=== PATIENT | female | born 1940 | race Caucasian/White ===

== ENCOUNTER 2016-07-20 13:00 | Inpatient (IN) | payer MEDICARE, OTHER ==
[~2016-07-20] VITALS: Ht 152.4 cm; Wt 72.2 kg
--- NOTE | ~2016-07-20 | DS ---
PATIENT'S NAME: DARLING SOTO [facility] AGE: 75 Y [address] ROOM: [place] [address] LOCATION: [facility] ADMIT DATE: 07/28/2016 Discharge Summary DISCHARGE DATE: 07/30/2016 FAMILY PHYSICIAN: Bre Villaseñor MD ATTENDING PHYSICIAN: Fredis Reyes PRIMARY DIAGNOSIS: Degenerative joint disease of the right knee. SECONDARY DIAGNOSES: 1. Hyperlipidemia. 2. Hypothyroidism. 3. Diabetes mellitus. 4. Asthma. 5. Restless legs syndrome. PROCEDURE PERFORMED: Right total knee arthroplasty with computer navigation. HISTORY: The patient is a 75-year-old female, who presents with advanced right knee degenerative joint disease and associated severely compromised activities of daily living. The patient has decided to proceed with total knee arthroplasty after having been thoroughly counseled regarding the risks, benefits, limitations and alternatives. Please refer to the outpatient clinic notes and admission history and physical for this patient. HOSPITAL COURSE: The patient underwent a right total knee arthroplasty on 07/28/2016 without complications. Spinal anesthesia plus adductor canal block plus periarticular local anesthesia was utilized. The patient received 24 hours of perioperative prophylactic antibiotics and remained hemodynamically stable, neurovascularly intact throughout the entire hospital course. The postoperative prophylactic deep venous thrombosis prophylaxis consisted of Eliquis, early mobilization and pneumatic compression devices. Daily physical therapy for gait training, transfer training range of motion and quadriceps isometric exercises were received. The patient progressed well in physical therapy. On the date of discharge, 07/30/2016, the incision at the knee was healing well and showed no signs of infection. DISPOSITION: Home. DISCHARGE ACTIVITY: The patient is to bear weight as tolerated with range of motion and quadriceps isometric exercises as instructed. The operative extremity is to be elevated at least 90% of the day. There is to be sterile 4x4 gauze dressings to the incision daily. Dr. Reyes is to be notified immediately if there is any increased pain, fevers, chills, erythema or drainage. PATIENT'S NAME: DARLING SOTO [facility] AGE: 75 Y [address] ROOM: [place] [address] LOCATION: [facility] ADMIT DATE: 07/28/2016 Discharge Summary DISCHARGE DATE: 07/30/2016 FAMILY PHYSICIAN: Bre Villaseñor MD ATTENDING PHYSICIAN: Fredis Reyes DISCHARGE MEDICATIONS: 1. Eliquis 5 mg, take one tab p.o. daily. The patient will resume taking 2 daily subsequent to 08/01/2016. 2. Nucynta 50 mg, take 1 to 2 tablets p.o. every 4 hours as needed for pain. FOLLOWUP: Followup appointment is to be with Dr. Reyes on 08/04/2016 for initial postoperative evaluation and x-rays at that time. ALEISHA MUNIZ FOR FREDIS REYES MD TLB/modl /[id number] d: 08/11/16 0323 t: 08/11/16 1512, DISCHARGE SUMMARY
--- NOTE | ~2016-07-20 | OR ---
PATIENT'S NAME: FARTUN ADAME [facility] AGE: 75 Y [address] ROOM: [place] [address] LOCATION: [facility] ADMIT DATE: 07/28/2016 OR/Procedure Report DISCHARGE DATE: FAMILY PHYSICIAN: Bre Villaseñor MD ATTENDING PHYSICIAN: FREDIS REYES SURGEON: Fredis Reyes MD CLOTH DYER: London Mosley CST/TRENT and Fredis Mcgovern. DATE OF PROCEDURE: 07/28/2016 PRE-OP DIAGNOSIS: Degenerative joint disease, right knee. POST-OP DIAGNOSIS: Degenerative joint disease, right knee. OPERATION: Right total knee arthroplasty with computer navigation. ANESTHESIA: Spinal anesthesia plus adductor canal block plus periarticular local anesthesia (ropivacaine with epinephrine and Toradol). ESTIMATED BLOOD LOSS: Less than 10 mL. DRAIN: None. SPECIMEN: None. COMPLICATIONS: None. IMPLANT SYSTEM: [employer] Triathlon. Size 3 right posterior stabilized femoral component. Size 2 [place] Modular tibial baseplate. an 11 mm posterior stabilized size 2 X3 tibial polyethylene insert. A 29 mm oval X3 patella component (triple pegged). INDICATIONS FOR SURGERY: Fartun Adame is a 75-year-old female who presents with advanced right knee degenerative joint disease and associated severely compromised activities of daily living. The patient has decided to proceed with knee replacement after having been thoroughly counseled regarding the associated risks, benefits, and limitations. We have specifically reviewed the risks and implications of infection, deep venous thrombosis, pulmonary embolism, mortality, neurovascular complications, blood transfusion (and associated potential for disease transmission or transfusion reaction), stiffness, instability, mechanical deterioration of the components (due to wear and or loosening), and the potential need for revision. We have also emphasized the importance of active involvement and compliance with post- operative physical therapy as a means of optimizing range of motion and PATIENT'S NAME: FARTUN ADAME [facility] AGE: 75 Y [address] ROOM: [place] [address] LOCATION: [facility] ADMIT DATE: 07/28/2016 OR/Procedure Report DISCHARGE DATE: FAMILY PHYSICIAN: Bre Villaseñor MD ATTENDING PHYSICIAN: FREDIS REYES functional recovery. Informed consent has been granted. DESCRIPTION OF PROCEDURE: The patient was positioned supine after administration of anesthesia and prophylactic antibiotics. A well-padded pneumatic tourniquet was placed around the right proximal thigh, and the right lower extremity was prepped and draped with vigilant sterile technique. The patient's name as well as the intended operative side and procedure were confirmed with a verbal time-out involving myself, the circulating nurse, the scrub nurse, and the anesthesiologist. Examination under anesthesia demonstrated no active skin lesions or masses. There was a moderate effusion. There was no erythema. There was no abnormal warmth. Range of motion under anesthesia was from full extension to 130 degrees of flexion. There was no clinically evident ligamentous insufficiency. The right lower extremity was elevated and exsanguinated with an Esmarch wrap, and the pneumatic tourniquet was inflated to 300 mmHg. The knee was approached through a longitudinal midline incision. A medial parapatellar arthrotomy was performed and the patella was everted. Examination of the joint space demonstrated a large amount of benign-appearing translucent synovial fluid. There were no loose bodies. There was no synovitis. There was a small osteophyte at the intercondylar notch. The anterior cruciate ligament was absent. The posterior cruciate ligament was intact. There was full-thickness loss of articular cartilage involving 80% of the medial femoral condyle and 60% of the medial tibial plateau. There were moderate-sized osteophytes at the medial femoral condyle and medial tibial plateau. There was a 1 cm diameter region of full-thickness articular cartilage loss at the central aspect of the femoral trochlea. There were mild grade 3 degenerative changes at the medial facet of the patella as well as the lateral tibial plateau. There was a very small osteophyte at the lateral femoral condyle. There were grade 2 degenerative changes at the lateral facet of the patella as well as the lateral femoral condyle. The middle one-third of the medial meniscus was essentially absent. There was mild inner perimeter tearing of the lateral meniscus. Remnants of the menisci and cruciate ligaments were excised. The [employer] navigation femoral tracker was pinned in place at the distal aspect of the femoral trochlea. Absence of motion between the femur and the tracking device was confirmed manually and visually. Femoral osseous landmarks were obtained in order to calibrate the computer navigation system. Landmarks included the center of rotation of the ipsilateral hip, the center-point of the distal femur, the femoral AP axis, 57 points on the medial femoral condyle articular surface, and 57 points on the lateral femoral condyle articular PATIENT'S NAME: FARTUN ADAME [facility] AGE: 75 Y [address] ROOM: [id number] [place], [place] [address] LOCATION: [facility] ADMIT DATE: 07/28/2016 OR/Procedure Report DISCHARGE DATE: FAMILY PHYSICIAN: Bre Villaseñor MD ATTENDING PHYSICIAN: FREDIS REYES. The [employer] computer navigation system was subsequently utilized to position the distal femoral resection block such that the distal femoral resection was performed perfectly perpendicular to the femoral mechanical axis. The distal femoral resection was performed with a [employer] oscillating saw. The [employer] computer navigation tibial tracker was pinned in place at the anterior aspect of the tibial plateau. Absence of motion between the tibia and the tracking device was confirmed manually and visually. Tibial osseous landmarks were obtained in order to calibrate the computer navigation system. Landmarks included the center-point of the tibial plateau, the AP tibial axis, 57 points on the medial tibial plateau articular surface, 57 points on the lateral tibial plateau articular surface, the medial malleolus, and the lateral malleolus. The [employer] computer navigation system was subsequently utilized to position the proximal tibial resection block such that the proximal tibial resection was performed perfectly perpendicular to the tibial mechanical axis. The proximal tibial resection was performed with a [employer] oscillating saw. Perpendicularity of the tibial resection with respect to the tibial shaft axis was reconfirmed by inserting a spacer- block attached to an extramedullary guide radha. External rotation of the anterior and posterior femoral resections was set parallel to the epicondylar axis and carefully adjusted in order to create a rectangular flexion gap. The box resection was performed with a reciprocating saw. Anterior and posterior chamfer resections were performed with the oscillating saw. Posterior condyle osteophytes were excised with an osteotome. All other osteophytes were excised with a rongeur. Resection of all remnants of the menisci was reconfirmed. Flexion and extension gaps were confirmed to be symmetric and well balanced with a spacer-block technique. The patella resection was performed with an oscillating saw such that the composite thickness of the reconstructed patella was equivalent to the thickness of the tuscarora patella. Patella tracking was optimal, and there was no need for a lateral retinacular release. All trial components were removed and all prepared osseous surfaces were thoroughly irrigated with pulsatile saline lavage and dried prior to cementing all three components in a single stage using [place] Simplex cement containing pre-mixed tobramycin. All extruded excess cement was removed. The entire joint space was thoroughly inspected and thoroughly irrigated with bacteriostatic pulsatile saline lavage to assure that there was no residual debris of any sort. Final range of motion was from full extension (with no passive hyperextension) to 130 degrees of flexion. Patella tracking was reconfirmed to be optimal. PATIENT'S NAME: FARTUN ADAME [facility] AGE: 75 Y [address] ROOM: [address] [address] LOCATION: [facility] ADMIT DATE: 07/28/2016 OR/Procedure Report DISCHARGE DATE: FAMILY PHYSICIAN: Bre Villaseñor MD ATTENDING PHYSICIAN: FREDIS REYES There was excellent anteroposterior stability at 90 degrees of flexion. There was less than 1 mm of medial lift-off to valgus stress in full extension. There was less than 1 mm of lateral lift-off to varus stress in full extension. The arthrotomy was closed with multiple simple and iflczy-lt-aloyf interrupted #1 Vicryl. Subcutaneous tissues were thoroughly re-irrigated with bacteriostatic pulsatile saline lavage. Subcutaneous tissues were re- approximated with simple buried interrupted #0 Vicryl sutures. The skin was closed with simple buried interrupted 2-0 Vicryl sutures followed by surgical mukesh. The dressing consisted of Xeroform gauze, 4x4 gauze, ABD pads and two 6-inch Joel Wraps. There were no intra-operative complications. MD SOMMER TEJADA/modl /[id number] d: 07/29/16 0002 t: 07/30/16 2223, OPERATIVE SUMMARY
[~2016-07-20 13:00] MED LIST: ALBUTEROL2.5 MG/31 INH; APRESOLINE25 MG PO; AVAPRO300 MG PO; BUMETANIDE2 MG PO; CALCIUM500 MG PO; COLACE100 MG PO; CORDARONE,PACE200 MG PO; DELTASONE10 MG PO; ELIQUIS5 MG PO; HYGROTON25 MG PO; LEVOTHROID (S100 MCG PO; LIPITOR20 M1 PO; LOPRESSOR50 MG PO; MIRALAX17 GM PO; NORVASC10 MG PO; NUCYNTA50 MG PO; PROVENTIL OR V6.7 GM INH; RESTASIS1 EACH OPHTH; SYMBICORT 16010.2 GM INH; TYLENOL EXTRA500 MG PO; ZOFRAN4 MG PO
--- NOTE | 2016-07-28 17:08 | NUR ---
Pt here from PACU at 0955. She had spinal anesthetic and adductor canal canal block. She has denied pain except rated about 1 after up to [facility]. She has been very sleepy since returned. She arouses easily but drifts off to sleep during conversation. She had many meds in OR to pretreat her for nausea. She has denied nausea here. She was up to commode x2 and voided 300 ml the 2nd time. Up in recliner at this time. ETCO2 monitor put on at 1330 due to drowsiness but has been only running in 30s. She is on 2L O2 and sats WNL. Dressing dry. Spinal worn off and CSM WNL. Uses IS at 1000. She has history of asthma. Ice to knee. VS will be routine for you.
--- NOTE | 2016-07-28 17:41 | NUR ---
Introduced self/role to patient and . reports they have all needed equipment from prior OR. Reviewed and encouraged use of IS. Understanding verbalized. Has foot pumps on bilat. Will follow and assist with identified needs.
--- NOTE | 2016-07-29 04:14 | NUR ---
Significant Event: A/O X 3. IV FLUIDS SALINE LOCKED. ON ETCO2 MONITORING. PATIENT DOES AROUSE WHEN NAME CALLED. MINIMAL AMOUNT OF PAIN, 2-0. ON ROUTINE SCHEDULED TYLENOL X STRENGTH 1000MG. ACEWRWAP DRSGS TO RIGHT KNEE DRY-INTACT. HAS EZ-WRAP TO RIGHT KNEE. DENIES NUMBNESS OR TINGLING. CHICO HOSE OFF AT HS. BILATERAL FOOT PUMPS TO FEET. INCENTIVE SPIROMETER USAGE ENCOURAGED. HAD ZOFRAN IV SCHEDULED. NO NAUSEA. UP TO COMMDOE, ONE ASSIST, WALKER AND GAITBELT VOIDS GOOD AMOUNTS X 2. PATIENT REQUESTED TO SLEEP IN RECLINER CHAIR, MORE COMFORTABLE. HAD ATB THERAPY CLINDAMYCIN IV. Follow up:
[2016-07-29 05:39] LABS: HEMATOCRIT 35.9 % (33.0-46.0); HEMOGLOBIN 12.2 g/dL (10.0-15.0)
--- NOTE | 2016-07-29 10:10 | NUR ---
Introduced self/role to patient and her Yg, they live in [place]. They have all their DME from previous knee surgery. Didn't think there would be any barriers to discharging home. Wrote my name on her marker board, will continue to follow.
--- NOTE | 2016-07-29 13:51 | NUR ---
Significant Event: AOx3. VSS. CSM WNL. Acewrap dressing to R) leg C/D/I. Up with walker and SBA. TYlenol and Nucynta for pain. gets scheduled Zofran. Planning on going home tomorrow with . Follow up:
--- NOTE | 2016-07-30 03:35 | NUR ---
Significant Event: A/O X 3. IV SALINE LOCK INTACT, FLUSHES WELL. ACEWRAP DRSGS RIGHT KNEE DRY-INTACT WITH EZ-WRAP. BILATERAL FOOT PUMPS TO FEET. CHICO HOSE OFF AT HS. PATIENT REQUESTS TO SLEEP IN RECLINER CHAIR, FOR BEING MORE COMFORTABLE. INCENTIVE SPIROMETER USAGE ENCOURAGE. PUSH FLUIDS. NO NAUSEA. AMBULATED TO BR WITH GAITBELT AND WALKER AND ONE ASSIST, VOIDS WELL. NO BM. POSSIBLE TO GO HOME TODAY. LEGS ELEVATED. HAD NUCYNTA 50MG TAB AT 2236. ON ROUTINE SCHEDULED TYLENOL X-STRENGTH 1000MG. Follow up:
[2016-07-30] MEDS ORDERED: TYLENOL EXTRA500 MG PO (13:15)
[2016-07-30] MEDS ORDERED: COLACE100 MG PO (13:17)
[2016-07-30] MEDS ORDERED: MIRALAX17 GM PO (13:18)
[2016-07-30] MEDS ORDERED: NUCYNTA50 MG PO (13:20)
[2016-07-30] MEDS ORDERED: ZOFRAN4 MG PO (13:22)
== END 2016-07-30 14:30 | disposition disaster alternative care site (69) | DRG 470 ==
LOC: G3N 07-28 05:16
PROVIDERS: ADMIT Orthopaedic Surgery
PROC: 0SRC0J9 Replacement of Right Knee Joint with Synthetic Substitute, Cemented, Open Approach (ICD-10-PCS; principal; 2016-07-28)
DX: M17.11 Unilateral primary osteoarthritis, right knee (principal); R00.1 Bradycardia, unspecified; I48.2 Chronic atrial fibrillation; E11.9 Type 2 diabetes mellitus without complications; I10 Essential (primary) hypertension; E03.9 Hypothyroidism, unspecified; G25.81 Restless legs syndrome; E78.5 Hyperlipidemia, unspecified; J45.909 Unspecified asthma, uncomplicated; E66.9 Obesity, unspecified; Z68.31 Body mass index [BMI] 31.0-31.9, adult; I25.2 Old myocardial infarction
CPT/HCPCS: C1713; C1776; J1100; J1885; J2250; J2405; J2795; J7120; Q0162